=== PATIENT | female | born 1965 | race Caucasian/White ===

== ENCOUNTER 2017-03-06 18:06 | Emergency (ER) | payer SELFPAY ==
[~2017-03-06] VITALS: Ht 162.6 cm; Wt 61.0 kg
[~2017-03-06 18:06] MED LIST: ATIVAN0.5 MG PO; AVIANE OR; CIPRO XR500 MG PO; FLAGYL500 MG PO; FLEXERIL5 M1 PO; HYDROCHLOROT12.5 MG PO; HYDROCHLOROT25 MG PO; LOPRESSOR25 M1 PO; MAXALT-MLT10 MG OR; MAXALT10 MG PO; METO50TA52 PO; METOPROL TAR50 MG PO
[2017-03-06] MEDS ORDERED: PREMARIN0.3 MG PO (18:20)
[2017-03-06] MEDS ORDERED: NAPROSYN500 MG PO (19:06)
[2017-03-06 19:17] VITALS: BP 138/90
== END 2017-03-06 19:17 | disposition home or self-care (01) | DRG 563 ==
LOC: ED 18:06
DX: S82.64XA Nondisplaced fracture of lateral malleolus of right fibula, initial encounter for closed fracture (principal); I10 Essential (primary) hypertension; W10.1XXA Fall (on)(from) sidewalk curb, initial encounter; Y93.9 Activity, unspecified; Y92.488 Other paved roadways as the place of occurrence of the external cause

== ENCOUNTER 2022-01-01 09:18 | Emergency (ER) | payer SELFPAY ==
[~2022-01-01] VITALS: Ht 162.6 cm; Wt 63.0 kg
[~2022-01-01 09:18] MED LIST changes: +NAPROSYN500 MG PO; +PREMARIN0.3 MG PO
[2022-01-01 09:36] VITALS: BP 187/127
[2022-01-01] MEDS ORDERED: IBUPROFEN600 MG PO (10:28)
== END 2022-01-01 10:43 | disposition home or self-care (01) | DRG 563 ==
LOC: ED 09:18
DX: S63.502A Unspecified sprain of left wrist, initial encounter (principal); I10 Essential (primary) hypertension; T46.5X6A Underdosing of other antihypertensive drugs, initial encounter; Z91.128 Patient's intentional underdosing of medication regimen for other reason; W18.39XA Other fall on same level, initial encounter; Y93.H2 Activity, gardening and landscaping; Y92.007 Garden or yard of unspecified non-institutional (private) residence as the place of occurrence of the external cause

== ENCOUNTER 2024-04-14 12:20 | Emergency (ER) | payer SELFPAY ==
[~2024-04-14] VITALS: Ht 162.6 cm; Wt 67.0 kg
[2024-04-14] VITALS (9 sets, daily range): BP systolic 142–238; BP diastolic 80–139
[~2024-04-14 12:20] MED LIST changes: +IBUPROFEN600 MG PO
[2024-04-14 12:52] LABS: BASO% 0.7 % (0-3); EOS% 2.4 % (0-8); IMMATURE GRANULOCYTES 0.1 % (0.0-5.0); LYMPH% 33.9 % (15-41); MEAN CELL VOLUME 100.2 fL CALC (80.0-100.0); MEAN CORPUSCULAR HGB 33.5 pG CALC (26.0-32.0); MEAN CORPUSCULAR HGB CONC 33.4 g/dL CAL (32.0-36.0); MONO% 8.4 % (2-13); NEUT# 3.82 thou/uL (2.00-7.15); NEUT% 54.5 % (42-76); RED BLOOD COUNT 4.18 mill/uL (4.20-5.60); RED CELL DISTRI WIDTH 12.7 % (11.5-15.5)
[2024-04-14 12:56] LABS: HEMATOCRIT 41.9 % (37.0-47.0)
[2024-04-14 13:12] LABS: ALKALINE PHOSPHATASE 78 u/l (38-126); BUN 19 mg/dL (7-17); BUN/CREATININE RATIO 21 (12-20 (CALC)); CARBON DIOXIDE 24 mmol/l (22-30); CHLORIDE 105 mmol/l (95-108); CREATININE 0.9 mg/dL (0.5-1.0); ESTIMATED GFR 75 ML/MIN (>=90 (CALC)); SODIUM 136 mmol/l (137-146)
[2024-04-14 13:13] LABS: ALBUMIN 4.8 g/dL (3.2-5.0); ANION GAP 11 (6-22 (CALC)); BILIRUBIN, TOTAL 0.6 mg/dL (0.02-1.3); POTASSIUM 4.4 mmol/l (3.5-5.1); SGOT/AST 29 u/l (14-36); TOTAL PROTEIN 8.2 g/dL (6.3-8.2)
[2024-04-14] MEDS ORDERED: hydrALAZINE HCL 20 MG/ML VIAL(1 ML) IV ONE (13:25)
[2024-04-14] MEDS ORDERED: HYDROCHLOROT25 MG PO (13:57)
== END 2024-04-14 14:18 | disposition home or self-care (01) | DRG 305 ==
LOC: ED 12:20
PROVIDERS: Nurse Practitioner Acute Care
DX: I16.0 Hypertensive urgency (principal); I10 Essential (primary) hypertension; F17.290 Nicotine dependence, other tobacco product, uncomplicated